=== PATIENT | male | born 1990 | race Hispanic/Latino ===

== ENCOUNTER 2017-03-21 15:29 | Emergency (ER) | payer MEDICAID, OTHER ==
[~2017-03-21] VITALS: Ht 182.9 cm; Wt 132.3 kg
[2017-03-21] MEDS ORDERED: CALC1CAP (15:35)
[2017-03-21] MEDS: PERCOCET 5MG/325MG TAB PO ONE (19:21)
[2017-03-21 19:28] LABS: BASO % 0.4 % (0.0-1.0); EOS # 0.3 10^3/uL (0.0-0.50); EOS % 4.2 % (0.0-3.0); IMMATURE GRANULOCYTE % 0.3 % (0-0); LYMPH # 1.4 10^3/uL (1.5-6.5); LYMPH % 18.9 % (24.0-44.0); MEAN CORPUSCULAR HEMOGLOBIN 28.4 pg (27.0-33.0); MEAN CORPUSCULAR HGB CONC 32.2 g/dl (32.0-36.5); MEAN CORPUSCULAR VOLUME 88.3 fl (80.0-96.0); MONO # 0.6 10^3/uL (0.0-0.8); MONO % 7.7 % (0.0-5.0); NEUTROPHILS # 5.1 10^3/uL (1.8-7.7); NEUTROPHILS % 68.5 % (36.0-66.0); PLATELET COUNT, AUTOMATED 173 10^3/uL (150-450); RED CELL DISTRIBUTION WIDTH 12.8 % (11.5-14.5); WHITE BLOOD COUNT 7.4 10^3/uL (4.0-10.0)
[2017-03-21 19:38] LABS: INR 0.98
--- NOTE | 2017-03-21 19:57 | REP ---
Chest two views HISTORY: Cough Comparison: None The lungs are clear. The heart is normal in size. The pulmonary vasculature is normal in appearance. The bony structure is intact. IMPRESSION: No acute disease. Signed by Ben Martinez MD 03/21/2017 07:48 P
[2017-03-21 20:11] LABS: ALBUMIN 3.7 GM/DL (3.2-5.2); ALBUMIN/GLOBULIN RATIO 0.93 (1.00-1.93); ALKALINE PHOSPHATASE 125 U/L (45-117); ALT/SGPT 17 U/L (12-78); ANION GAP 15 MEQ/L (8-16); AST/SGOT 5 U/L (15-37); BILIRUBIN,DIRECT 0.1 MG/DL (0.0-0.2); BILIRUBIN,TOTAL 0.4 MG/DL (0.2-1.0); BLOOD UREA NITROGEN 67 MG/DL (7-18); CALCIUM LEVEL 8.2 MG/DL (8.5-10.1); CARBON DIOXIDE LEVEL 23 MEQ/L (21-32); CHLORIDE LEVEL 101 MEQ/L (98-107); GLOMERULAR FILTRATION RATE 3.4 (>60); GLUCOSE, FASTING 71 MG/DL (70-105); MAGNESIUM LEVEL 2.8 MG/DL (1.8-2.4); PHOSPHORUS LEVEL 7.1 MG/DL (2.5-4.9); POTASSIUM SERUM 4.2 MEQ/L (3.5-5.1); SODIUM LEVEL 139 MEQ/L (136-145); TOTAL PROTEIN 7.7 GM/DL (6.4-8.2)
[2017-03-21] MEDS ORDERED: ZITHTAB PO (20:23)
[2017-03-21 20:40] VITALS: BP 153/97
[2017-03-21] MEDS: AZITHROMYCIN 250 MG TAB PO ONE (20:42)
--- NOTE | 2017-03-22 08:11 | ECGEPIP ---
Stationary ECG Study [facility] - ED Test Date: 2017-03-21 Pat Name: PATRIC HERNANDEZ Department: Room: - Gender: M [employer]: adeline : 1990 Requested By: ANGELA Ortega PA-C Order Number: [id number] Reading MD: Aguila Duron Measurements Intervals [place] Rate: 80 P: 66 UT: 163 QRS: -3 QRSD: 122 T: 2 QT: 409 QTc: 472 Interpretive Statements SINUS RHYTHM LEFT VENTRICULAR HYPERTROPHY AND ST-T CHANGE NSTTW ABNORMALITIES NO PRIORS Electronically Signed On 03-22-2017 8:11:22 EDT by Aguila Duron
== END 2017-03-21 20:52 | disposition home or self-care (01) ==
LOC: M ED 15:29
DX: J20.9 Acute bronchitis, unspecified (principal)

== ENCOUNTER → 2017-06-14 | Outpatient (CLI) | payer OTHER ==
[~2017-06-14] MED LIST: CALC1CAP; ZITHTAB PO
--- NOTE | 2017-06-14 20:39 | ECGEPIP ---
Stationary ECG Study [facility] Test Date: 2017-06-14 Pat Name: PATRIC HERNANDEZ Department: Room: - Gender: M Rn Er: : 1990 Requested By: EMERSON Ortega Order Number: [id number] Reading MD: Cody Whiting Measurements Intervals [place] Rate: 117 P: 71 NM: 143 QRS: -12 QRSD: 106 T: 59 QT: 319 QTc: 446 Interpretive Statements SINUS TACHYCARDIA INCOMPLETE RIGHT BUNDLE BRANCH BLOCK Left ventricular hypertrophy with ST-T change Similar to tracing done 03-21-2017 with increased rate Electronically Signed On 06-14-2017 20:39:15 EST by Cody Whiting
--- NOTE | 2017-06-15 14:32 | REP ---
Clinical: Chest pain. History of chronic end-stage renal disease . Comparison: 03/21/2017 . Technique: PA and lateral. Findings: The mediastinum and cardiac silhouette are normal. The lung willard are clear and without acute consolidation, effusion, or pneumothorax. The skeletal structures are intact and normal. Impression: 1. No acute cardiopulmonary process. Signed by Trey Fisher MD 06/14/2017 11:46 P
--- NOTE | 2017-06-15 14:36 | REP ---
Clinical: End-stage renal disease. Technique: Real time allen scale ultrasound examination using curved array transducer. Findings: The bilateral kidneys are mildly atrophic and diffusely echogenic consistent with chronic medical renal disease. Right kidney measures 5.2 x 3.0 x 2.0 cm and includes 6 mm lower pole cyst without hydronephrosis or nephrolithiasis. Left kidney measures 5.2 x 2.9 x 2.2 cm without hydronephrosis, cyst or nephrolithiasis. Limited evaluation of the bladder demonstrates 1.8 cm echogenic tumefactive sludge. Impression: 1. Chronic renal changes consistent with end-stage renal disease. 2. Tumefactive sludge ball in the bladder suggested. Signed by Trey Fisher MD 06/15/2017 02:54 A
== END ==
LOC: M LAB 12:09
PROVIDERS: ATTEND Internal Medicine Nephrology
DX: Z01.818 Encounter for other preprocedural examination (principal); N18.6 End stage renal disease; R94.31 Abnormal electrocardiogram [ECG] [EKG]

== ENCOUNTER 2017-07-07 11:25 | Emergency (ER) | payer OTHER ==
[2017-07-07 12:08] LABS: BASO % 0.5 % (0.0-1.0); EOS # 0.2 10^3/uL (0.0-0.50); EOS % 2.5 % (0.0-3.0); HEMATOCRIT 41.9 % (42.0-52.0); HEMOGLOBIN 14.6 g/dl (14.0-18.0); IMMATURE GRANULOCYTE % 0.1 % (0-0); LYMPH # 1.6 10^3/uL (1.5-6.5); MEAN CORPUSCULAR HEMOGLOBIN 29.7 pg (27.0-33.0); MEAN CORPUSCULAR HGB CONC 34.8 g/dl (32.0-36.5); MEAN CORPUSCULAR VOLUME 85.3 fl (80.0-96.0); MONO # 0.5 10^3/uL (0.0-0.8); MONO % 6.2 % (0.0-5.0); NEUTROPHILS # 5.1 10^3/uL (1.8-7.7); NEUTROPHILS % 68.7 % (36.0-66.0); PLATELET COUNT, AUTOMATED 277 10^3/uL (150-450); RED BLOOD COUNT 4.91 10^6/uL (4.30-6.10); RED CELL DISTRIBUTION WIDTH 13.4 % (11.5-14.5); WHITE BLOOD COUNT 7.5 10^3/uL (4.0-10.0)
[2017-07-07 12:39] LABS: INR 0.84; PROTHROMBIN TIME 11.6 SECONDS (12.4-14.5)
[2017-07-07 12:50] LABS: ALBUMIN 3.8 GM/DL (3.2-5.2); ALKALINE PHOSPHATASE 126 U/L (45-117); ANION GAP 11 MEQ/L (8-16); BILIRUBIN,TOTAL 0.6 MG/DL (0.2-1.0); CALCIUM LEVEL 8.7 MG/DL (8.5-10.1); CARBON DIOXIDE LEVEL 27 MEQ/L (21-32); CHLORIDE LEVEL 98 MEQ/L (98-107); CREATININE FOR GFR 7.02 MG/DL (0.70-1.30); GLOMERULAR FILTRATION RATE 10.1 (>60); MAGNESIUM LEVEL 2.5 MG/DL (1.8-2.4); POTASSIUM SERUM 3.9 MEQ/L (3.5-5.1); SODIUM LEVEL 136 MEQ/L (136-145); THYROXINE (T4) 10.4 UG/DL (4.5-12.0)
[2017-07-07 13:30] LABS: BLOOD UREA NITROGEN 24 MG/DL (7-18)
[2017-07-07 13:31] LABS: ALBUMIN/GLOBULIN RATIO 0.84 (1.00-1.93); ALT/SGPT 11 U/L (12-78); AST/SGOT 10 U/L (7-37); FREE THYROXINE INDEX 3.1 % (1.4-3.8); GLUCOSE, FASTING 127 MG/DL (70-105); T UPTAKE 30 % (33-40); TOTAL PROTEIN 8.3 GM/DL (6.4-8.2)
== END 2017-07-07 13:59 | disposition home or self-care (01) ==
LOC: M ED 11:25
DX: R00.0 Tachycardia, unspecified (principal); N18.6 End stage renal disease; Z99.2 Dependence on renal dialysis; Z79.899 Other long term (current) drug therapy; Z87.891 Personal history of nicotine dependence
CPT/HCPCS: 71046